=== PATIENT | male | born 1960 | race Caucasian/White ===

== ENCOUNTER 2018-07-08 16:49 | Inpatient (IN) ==
[2018-07-08] MEDS ORDERED: SODIUM CHLORIDE 0.9% 1000ML 1,000 ML IV ONE ×2 (17:28)
[2018-07-08 18:24] LABS: Basophils # (auto) 0.03 K/uL (0-0.2); Basophils % (auto) 0.3 %; Eosinophils # (auto) 0.04 K/uL (0-0.5); Eosinophils % (auto) 0.4 %; Hematocrit (blood only) 48.9 % (42-52); Hemoglobin 17.2 g/dL (14.0-18.0); Immature Granulocytes # (auto) 0.03 K/uL (0.00-0.02); Immature Granulocytes % (auto) 0.3 %; Lymphocytes # (auto) 1.03 K/uL (1.2-3.4); Lymphocytes % (auto) 9.5 %; Mean Corpuscular Hgb Conc 35.2 g/dL (32-36); Mean Corpuscular Volume 88.7 fL (80-100); Mean Platelet Volume 12.3 fL (7.4-10.4); Monocytes # (auto) 0.94 K/uL (0.11-0.59); Monocytes % (auto) 8.6 %; Neutrophils % (auto) 80.9 %; Platelet Count 197 K/uL (130-400); RDW Standard Deviation 42.2 fL (36.4-46.3); Red Blood Count 5.51 M/uL (4.7-6.1); White Blood Count 10.87 K/uL (4.8-10.8)
[2018-07-08 18:32] LABS: Alanine Aminotransferase 55 U/L (12-78); Albumin Level 3.5 gm/dl (3.4-5.0); Aspartate Aminotransferase 28 U/L (15-37); BUN Creatinine Ratio 21.4 (10-20); Blood Urea Nitrogen 34 mg/dl (7-18); Calcium 9.2 mg/dl (8.5-10.1); Carbon Dioxide 29 mmol/L (21-32); Chloride 114 mmol/L (98-107); Creatinine Clr Calc Pharmacy 48.4 ml/min; Est GFR (African American) 54.3; Est GFR (Non-African American) 46.8; Glucose 92 mg/dl (70-99); Magnesium 2.4 mg/dl (1.8-2.4); Potassium 3.6 mmol/L (3.5-5.1); Sodium 149 mmol/L (136-145)
[2018-07-08 18:43] LABS: Albumin Globulin Ratio 0.9 (0.9-2); Alkaline Phosphatase 66 U/L (45-117); Bilirubin,Total 1.4 mg/dl (0.2-1); Globulin 3.8 gm/dl (2.5-4.0); NT Pro B Type Natriuretic Pept 45 pg/ml (0-900); Total Protein 7.3 gm/dl (6.4-8.2); Troponin I < 0.015 ng/ml (0-0.045)
--- NOTE | 2018-07-08 18:47 | CT Scan Report ---
CT head/brain wo con CLINICAL HISTORY: 57 years-old Male with syncope, chi, ams. Acute syncope with altered mental status and acute fall. TECHNIQUE: Multiple axial CT images of the head were obtained without contrast. A dose lowering tech nique was utilized adhering to the principles of ALARA. COMPARISON: CT cervical spine of same day. FINDINGS: No acute intracranial hemorrhage, midline shift, intracranial mass, hydrocephalus, territorial ischem ia or abnormal extra-axial collection. The calvarium is intact. The paranasal sinuses, mastoid air cells, and middle ear cavities are clear . IMPRESSION: No acute intracranial abnormality or calvarial fracture. The above report was generated using voice recognition software. It may contain grammatical, syntax o r spelling errors. Electronically signed by: Jake Grace M.D. 07/08/2018 6:45 PM
--- NOTE | 2018-07-08 18:50 | CT Scan Report ---
CT cervical spine wo con CT DOSE: 1007.02 mGy.cm CLINICAL HISTORY: 57 years-old Male with syncope, ams, head injury. Acute neck injury status post fa ll COMPARISON: CT head of same day TECHNIQUE: Multiple axial CT images of the cervical spine were obtained without contrast. A dose low ering technique was utilized adhering to the principles of ALARA. FINDINGS: Mild disc space narrowing seen at several levels. Mild multilevel spondylitic spurring with mild to m oderate facet arthrosis. No acute fracture or subluxation identified. Dilation of the central canal a nd neuroforamina is better assessed by MRI. Severe right-sided facet arthropathy at C3-C4. Trace righ t mastoid effusion. Left mastoid air cells are clear. Middle ear cavities are also clear. No preverte bral soft tissue swelling. Lung apices appear clear. IMPRESSION: No acute cervical spine fracture or subluxation. The above report was generated using voice recognition software. It may contain grammatical, syntax o r spelling errors. Electronically signed by: Jake Grace M.D. 07/08/2018 6:49 PM
--- NOTE | 2018-07-08 19:22 | XRay Report ---
XR abdomen 2V w PA chest HISTORY: 57 years-old Male nausea, syncope acute nausea with syncope COMPARISON: None available TECHNIQUE: PA view the chest with erect and supine views of the abdomen FINDINGS: Cardiomediastinal and hilar silhouettes are within normal limits. No pneumothorax, pleural effusion o r overt pulmonary edema. Subsegmental left basilar opacities are noted. Degenerative changes of the s houlders and spine. Prior cholecystectomy. Bowel gas pattern appears nonobstructive. No definite urolith. Lumbar levoscol iosis. Degenerative changes of the hips, pelvis and spine. Remote fracture of the left femur with HUGO F changes. Pelvic basin calcifications suggest focal bullous. IMPRESSION: 1. Subsegmental left basilar opacities suggest probable atelectasis. 2. Nonobstructive bowel gas pattern. The above report was generated using voice recognition software. It may contain grammatical, syntax o r spelling errors. Electronically signed by: Jake Grace M.D. 07/08/2018 7:21 PM
[2018-07-08 20:52] LABS: Appearance Urine Turbid (Clear); Bacteria Urine Automated Negative (Negative); Blood Urine Negative (Negative); Color Urine Orange; Epithelial Cell Urine Auto >30 /lpf (0-5); Glucose Urine UA Negative (Negative); Ketones Urine 1+ (Negative); Leukocyte Esterase Urine Trace (Negative); Nitrite Urine Positive (Negative); Protein Urine Trace (Negative); Specific Gravity Urine 1.022 (1.000-1.030); Urobilinogen Urine Positive (Negative)
[2018-07-08] MEDS ORDERED: IOVERSOL 100ml IV PRN (21:00)
[2018-07-08 21:02] LABS: Bilirubin Urine Negative (Negative); Ictotest Urine Negative (Negative)
[2018-07-08 21:05] LABS: Cast Urine Automated >30 /lpf (0-5)
[2018-07-08 21:06] LABS: Renal Epithelial Cells Urine 0-5 /lpf (0-5)
[2018-07-08 21:10] LABS: iSTAT Hemoglobin 13.3 g/dl (14.0-18.0); iSTAT Ionized Calcium 1.06 mmol/l (1.12-1.32); iSTAT Potassium 3.7 mEq/L (3.3-5.0)
[2018-07-08 21:13] LABS: Amphetamines+Metham, Urine Neg (Neg); Barbiturates, Urine Neg (Neg); Benzodiazepine, Urine Neg (Neg); Cocaine, Urine Neg (Neg); MDMA (Ecstacy), Urine Neg (Neg); Methadone, Urine Neg (Neg); Opiate, Urine Neg (Neg); Phencyclidine, Urine Neg (Neg)
--- NOTE | 2018-07-08 21:51 | CT Scan Report ---
ABDOMEN AND PELVIS CT WITH IV CONTRAST CT DOSE: 496.73 mGy.cm HISTORY: Acute nausea and vomiting with recent cholecystectomy n/v, s/p karen TECHNIQUE: Multiaxial CT images of the abdomen and pelvis were performed following the use of intrave nous contrast. A dose lowering technique was utilized adhering to the principles of ALARA. COMPARISON STUDY: Acute abdominal series radiographs of same day. FINDINGS: Bibasilar linear consolidative and patchy groundglass densities are noted suggestive of probable atel ectasis. There is no pneumatosis or pneumoperitoneum identified. Imaged inferior cardiac chambers are upper limits of normal in size. Prior cholecystectomy. The postoperative fluid collections. No bilia ry ductal dilation. The liver is unremarkable. 5 mm hypodense lesion of the inferior right hepatic lo be suggests probable cyst. Spleen, pancreas and adrenal glands are unremarkable. Mild nonspecific verónica ateral perinephric stranding. The ureters are unremarkable. Mild wall thickening of the urinary bladd er with partial distention. Prostate is unremarkable. Tiny fat filled left inguinal hernia. No aortic aneurysm or adenopathy. There is no small bowel obstruction. Air-fluid levels are noted within multiple nondilated loops of s mall bowel about the abdomen and pelvis. No significant bowel wall thickening. Appendix appears kristina l. No ascites or mesenteric inflammation. Soft tissues are within normal limits. Partially imaged kulwinder dware about the proximal left femur. Degenerative changes of the pelvis and spine. Mild lumbar levosc oliosis. Bones appear intact. IMPRESSION: 1. No bowel obstruction or focal bowel wall thickening. Normal appendix. 2. Multiple scattered small bowel air-fluid levels are noted throughout the abdomen and pelvis which may be physiologic, however considering history of nausea and vomiting an infectious or inflammatory enteritis may also be considered. 3. Prior cholecystectomy. 4. Bibasilar opacities suggest atelectasis with pneumonia considered less likely. 5. Mild wall thickening of the urinary bladder. Correlate with urinalysis to exclude cystitis. 6. Additional findings as above. Electronically signed by: Jake Grace M.D. 07/08/2018 9:50 PM
[2018-07-08] MEDS ORDERED: cefTRIAXone SODIUM 1,000 MG/50 ML BAG IV STA (22:16)
--- NOTE | 2018-07-08 23:26 | History & Physical Report ---
Date of Service July 08, 2018 Assessment & Plan (1) Syncope: 57yoM with hx of HTN and bipolar disorder presented from the [facility] for concern of lightheadedness and falling to the floor. Syncopal episode: likely in the setting of significant dehydration due to occasional diarrhea and decreased PO intake vs. hypotension vs. UTI vs. possible arrhythmia -CT head and C-spine - negative -EKG 75 NSR QTc 511 -Trop and BNP wnl -electrolytes wnl except for hypernatremia/hyperchloremia -UA dirty and concentrated but possibly concerning for UTI -Abdominal CT concerning for possible enteritis -Utox negative and etoh < 3 -Received 2L IVF NS bolus and on 150cc NS now -Monitor on telemetry UTI -WBC 10.87 -Hx of dysuria and suprapubic tenderness on exam -UA dirty and concentrated but possibly concerning for UTI -UCx pending -Started on Rocephin MY likely in the setting of signioficant dehydration -BUN/Cr 34/1.59 -Received 2L NS bolus and on 150cc NS/hr -Continue to monitor BMP Hypernatremia -Na 149 likely in the setting of hypovolemia -Continue NS at 150cc/hr -Continue to monitor BMP Diarrhea with occasional nausea since may: viral vs. bacterial enteritis -WBC 10.87 -CT abdomen: multiple scattered small bowel air fluid levels concerning for infectious/inflammatory process vs. enteritis -C.diff and stool cultures ordered -On Rocephin for UTI -Continue to monitor Bipolar Disorder -Pt was admitted at the [facility] prior to arrival -Continue home citalopram, lamotrigine, zyprexa and ativan -Pt exhibiting passive suicidal thoughts but denies active SI/HI -Mental health evaluation requested HTN -Pt currently normotensive -Hold Lisinopril in the setting of elevated Cr GERD -Continue home omeprazole DVT prop: low risk, SCDs Code: Full Dispo: med/surg telemetry (2) UTI (urinary tract infection): (3) Dehydration: (4) HTN (hypertension): (5) Bipolar disorder: History of Present Illness Primary Care Provider: NO PCP 57yoM with hx of HTN and bipolar disorder presented from the [facility] for concern of lightheadedness and falling to the floor. Per the [facility] reports, pt had not been eating/drinking, fatigued and was hypotensive prior to arrival. When examined pt appears to be a poor historian and exhibiting active psychiatric symptoms. Reports falling around 11:00am. A/w mild dizziness prior to fall, some occasional sob, nausea, on and off diarrhea since having gall bladder surgery in may. Denies any headache, f/c, cp, abdominal pain. He is not sure if he hit his head and does not think he lost consiousness but reports "they said I did hit my head". He also reports struggling to get along with everyone and just wanting to get it done with. Denies any SI/HI and has no plans of harming himself when further clarified given passive suicidal thoughts. Allergies Allergy/AdvReac Type Severity Reaction Status Date / Time quetiapine [From Seroquel] AdvReac Irritable Unverified 07/08/18 17:43 venlafaxine [From Effexor] AdvReac Unknown Unverified 07/08/18 17:43 Home Medications Home Medications Medication Instructions Recorded Confirmed Type citalopram 30 mg PO DAILY 07/08/18 07/08/18 History lamotrigine 50 mg PO BID 07/08/18 07/08/18 History lisinopril 10 mg PO DAILY 07/08/18 07/08/18 History lorazepam [Ativan] 1 mg PO TID 07/08/18 07/08/18 History olanzapine [Zyprexa Zydis] 10 mg PO DAILY 07/08/18 07/08/18 History omeprazole 20 mg PO DAILY 07/08/18 07/08/18 History Past Med/Surg History Surgical History History of cholecystectomy (Chronic) Social History Preferred Language: Belizean Communication Ability: Effective Regional Clinical Director Required: No Beliefs That Will Affect Care: None Current Living Situation: Alone Current Living Situation Comment: [facility] Other Information That Helps Us Care for You: No Safety Concerns: Afraid for Self Smoking Status: Never smoker Hx Alcohol Use: No Hx Substance Use: No Review of Systems As per HPI Physical Exam Vital Signs (Past 24 Hours): Last Vital Signs Temp 36.8 C 07/08/18 17:08 Pulse 60 07/08/18 23:00 Resp 16 07/08/18 23:00 BP 127/78 07/08/18 23:00 Pulse Ox 96 07/08/18 23:00 Physical Exam: General: In NAD, resting in bed HEENT: very dry mucous membranes CV: RRR, no m/r/g Pulm: CTAB, equal breath sounds bilaterally, on RA GI: +BS, non-distended, TTP in all quadrants (more so over lower abdominal quadrants RLQ, suprapubic, LLQ regions) extremities: no calf tenderness, no LE edema Code Status & VTE Plan Code Status Full VTE Prophylaxis Plan VTE Prophylaxis will be ordered: Yes Supervising Physician Co-Signing Physician Notes Attending addendum: I have physically seen this patient, have supervised the medical residents activities, and agree with the H&P unless as otherwise noted. Assessment and Plan: Syncope-- Likely associated with metabolic/psychiatric issues. Acute kidney injury/hypernatremia/dehydration/UTI-- Follow urine culture and sensitivity. Ceftriaxone 1 g IV daily. Follow serial labs: CBC with differential, CMP and magnesium levels. Continue NSS 150 mils per hour after 2 L bolus performed in ED. Diarrhea/nausea-- Follow stool studies for C. difficile, urine culture and sensitivity. No suggestion of E. coli. Bipolar disorder/suicidal ideation-- Continue usual medications of citalopram, lamotrigine, Zyprexa and Ativan. Consult psychiatry. Question contribution to syncopal/near syncopal symptoms. Remainder of orders notations as noted. Resident Activity Tracking Resident Involvement: Resident Care Provided Care Provided: Adult Hospital Medicine (1) UTI (urinary tract infection) Hematuria presence: without hematuria Urinary tract infection type: site unspecified Qualified Code(s): N39.0 - Urinary tract infection, site not specified (2) Syncope Syncope type: unspecified Qualified Code(s): R55 - Syncope and collapse
[2018-07-09] MEDS ORDERED: ALUMINUM/MAGNESIUM SUSP 30 ML UDC PO PRN (01:54)
[2018-07-09] MEDS ORDERED: ACETAMINOPHEN 325 MG TAB PO PRN (01:54)
[2018-07-09] MEDS: SODIUM CHLORIDE 0.9% 1000ML 1,000 ML IV SCH ×2 (02:05→08:07)
[2018-07-09] MEDS: lamoTRIgine 25 MG TAB PO SCH ×3 (02:57→22:29)
--- NOTE | 2018-07-09 07:49 | Hospitalist Progress Note ---
Date of Service July 09, 2018 Assessment & Plan (1) Syncope: 57yoM with hx of HTN and bipolar disorder presented from the [facility] for concern of lightheadedness and falling to the floor. Syncopal episode: likely in the setting of significant dehydration due to occasional diarrhea and decreased PO intake vs. hypotension vs. UTI vs. possible arrhythmia -CT head and C-spine - negative -EKG 75 NSR QTc 511 -Trop and BNP wnl -electrolytes wnl except for hypernatremia/hyperchloremia -UA dirty and concentrated but possibly concerning for UTI -Abdominal CT concerning for possible enteritis -Utox negative and etoh < 3 -Received 2L IVF NS bolus and on 150cc NS now -Monitor on telemetry Lamictal level pending UTI poa -UCx pending -Started on Rocephin MY -Received 2L NS bolus and on 150cc NS/hr -Continue to monitor BMP we will change fluids to half-normal saline at 100 and hour Hypernatremia Diarrhea with occasional nausea since may: viral vs. bacterial enteritis -CT abdomen: multiple scattered small bowel air fluid levels concerning for infectious/inflammatory process vs. enteritis -C.diff and stool cultures ordered -On Rocephin for UTI Bipolar Disorder -Pt was admitted at the [facility] prior to arrival -Continue home citalopram, lamotrigine, zyprexa and ativan will reduce doses of Zyprexa and Ativan which was scheduled due to his lethargy -Pt exhibiting passive suicidal thoughts but denies active SI/HI upon requesting 07/09 -Mental health evaluation requested HTN -Holding Lisinopril in the setting of elevated Cr GERD omeprazole DVT prop: low risk, SCDs Code: Full Dispo: med/surg telemetry (2) UTI (urinary tract infection): (3) Dehydration: (4) HTN (hypertension): (5) Bipolar disorder: Subjective Patient presented with syncope was found to be suspected to have a urinary tract infection present on admission and evaded sodium although modest. Patient is on multiple psychiatric medications and appears oversedated during our evaluation on 07/09 is able to ambulate with contact-guard Review of Systems ROS: well nourished well developed. He is lethargic No double vision blurry vision He has mumbling of speech but no problems with eating according to nursing staff No palpitations, chest pain or pressure No Wheezing or breathing issues No abdominal pain nausea vomiting diarrhea changes in appetite or weight No burning urine urine frequency or changes in color No focal joint pain or muscle pain No skin rashes or oral lesions No unusual bruising or bleeding No focused back pain or numbness or loss of strength Physical Exam Vital Signs (Past 24 Hours): Last Vital Signs Temp 36.3 C L 07/09/18 04:00 Pulse 60 07/09/18 04:00 Resp 16 07/09/18 04:00 BP 91/55 L 07/09/18 04:00 Pulse Ox 95 07/09/18 04:00 The patient appeared well nourished and normally developed. Vital signs as documented. Head exam is unremarkable. normocephalic, atraumatic no signs of injury from his fall Neck is without jugular venous distension, thyromegaly, or lymphademopathy Lungs are clear to auscultation and percussion. Cardiac exam reveals Rhythm is regular. First and second heart sounds normal. Abdominal exam reveals normal bowel sounds, no masses, no organomegaly Extremities are nonedematous and both pedal pulses are present Neurologic exam is A&Ox3, patient is lethargic no focal deficits able to ambulate Psychologically seems medicated Skin is warm Dry without bruises or lesions (1) UTI (urinary tract infection) Hematuria presence: without hematuria Urinary tract infection type: site unspecified Qualified Code(s): N39.0 - Urinary tract infection, site not specified (2) Syncope Syncope type: unspecified Qualified Code(s): R55 - Syncope and collapse
[2018-07-09] MEDS: CITALOPRAM 20 MG TAB PO SCH (08:05)
[2018-07-09] MEDS: PANTOprazole 40 MG TAB PO SCH (08:06)
[2018-07-09] MEDS: LORazepam 1 MG TAB PO SCH ×2 (08:07→16:45)
[2018-07-09] MEDS ORDERED: OLANZAPINE ZYDIS 10 MG ORALLY DIS. TAB PO SCH (09:00)
[2018-07-09 09:19] LABS: Basophils # (auto) 0.06 K/uL (0-0.2); Basophils % (auto) 0.8 %; Eosinophils # (auto) 0.13 K/uL (0-0.5); Eosinophils % (auto) 1.7 %; Hematocrit (blood only) 42.4 % (42-52); Hemoglobin 14.7 g/dL (14.0-18.0); Immature Granulocytes # (auto) 0.01 K/uL (0.00-0.02); Immature Granulocytes % (auto) 0.1 %; Lymphocytes # (auto) 1.64 K/uL (1.2-3.4); Lymphocytes % (auto) 21.4 %; Mean Corpuscular Hgb Conc 34.7 g/dL (32-36); Mean Corpuscular Volume 88.7 fL (80-100); Mean Platelet Volume 12.1 fL (7.4-10.4); Monocytes # (auto) 0.67 K/uL (0.11-0.59); Monocytes % (auto) 8.8 %; Neutrophils # (auto) 5.14 K/uL (1.4-6.5); Neutrophils % (auto) 67.2 %; Platelet Count 156 K/uL (130-400); RDW Coefficient of Variation 13.1 % (11.5-14.5); RDW Standard Deviation 42.6 fL (36.4-46.3); Red Blood Count 4.78 M/uL (4.7-6.1); White Blood Count 7.65 K/uL (4.8-10.8)
[2018-07-09 10:00] LABS: Albumin Globulin Ratio 0.8 (0.9-2); Albumin Level 2.6 gm/dl (3.4-5.0); BUN Creatinine Ratio 24.1 (10-20); Bilirubin,Total 1.1 mg/dl (0.2-1); Calcium 8.2 mg/dl (8.5-10.1); Creatinine Clr Calc Pharmacy 90.5 ml/min; Est GFR (African American) 110.5; Est GFR (Non-African American) 95.4; Globulin 3.3 gm/dl (2.5-4.0); Potassium 3.5 mmol/L (3.5-5.1); Total Protein 5.9 gm/dl (6.4-8.2)
--- NOTE | 2018-07-09 12:49 | Psychiatric Consultation ---
Date of Consultation July 09, 2018 Impression / Recommendations Impression 57-year-old male admitted medically from the [facility] and treated for dehydration and UTI s/p syncopal episode. Pt is currently on an active 302 from the [facility], and is to return to that facility to complete psychiatric treatment after he is medically cleared. Pt denies suicidality, homicidality, and any active hallucinations, delusions, or other clear psychotic symptoms. He does appear somewhat sedated, but is able to converse with this provider, giving limited history. He is tangential at times, but comments are reality-based during our interview. No records received from the [facility] in regard to m edication adjustments made during his voluntary stay. Would recommend continuing his current medication regimen if tolerated until his return to their facility. At time of assessment, the patient does not present with any acute psychiatric concerns which would affect his ability to safely return to the [facility]. Appreciate the ability to participate in the care of this patient. Dr. Esteban Watts was directly involved in review and discussion of the patient's case and participated in medical decision making regarding treatment recommendations. CPT Code Initial Consultation: 55991 Psych History Identifying Data 57-year-old male admitted medically on 07/08/18 after suffering a fall while hospitalized at the [facility]. Pt was being treated involuntary and remains on an active 302 commitment. Psychiatric consultation was requested due to bipolar disorder, and concern for SI. Information is gathered from the patient is difficult to gather, but considered to be reliable. Chief Complaint "I'm hanging in there." History of Present Illness Wilfred Martines is a 57-year-old male admitted medically on 07/08/18 s/p fall while receiving treatment at [facility]. There was reported concern as the patient had not been eating or drinking during his treatment there. Pt was admitted involuntarily and remains on an active 302 commitment. Pt is seen on our consult service to assist in psychiatric management during his medical admission - and specifically to evaluate for bipolar disorder and concern for SI. Pt had reportedly presented with AMS, was found to have a UTI and has been treated for dehydration. Psychiatric medications were continued during his medical admission. Pt was assessed by our psychiatric liaison. Pt was seen by this provider on our consult service. He is somewhat cooperative, and mildly irritable as he had reported desire to take a nap just prior to this provider entering the room. Pt states he is "hanging in there." He voices that he is feeling better and that he wants to go home. We discussed that after he is feeling better physically, he will be returning to the [facility] to finish his inpatient psychiatric treatment. The patient was asked about the presence of A/V hallucinations, which he denies stating "not that I know of." He denies overt suicidality, rather stating - "life is tough sometimes, but I bet a bunch of people feel that way." Pt denies homicidal ideation. He is tangential at times, jumping from our conversation to "do I have bruises all over me?" When asked if he felt that he did, he states "well they keep sticking me with needles." Pt, did not voice an concerns consistent with delusions, paranoia, or active psychosis which would make transfer back to the [facility] considered unsafe. Past Psychiatric History Current Psychiatric Diagnosis: Bipolar disorder Previous Psych Admissions: Presented to the [facility] as a 201; converted to 302 with inability to care for self when he stopped eating and drinking. Past Medication Trials: 1. Seroquel 2. Effexor Allergies Allergy/AdvReac Type Severity Reaction Status Date / Time quetiapine [From Seroquel] AdvReac Irritable Unverified 07/08/18 17:43 venlafaxine [From Effexor] AdvReac Unknown Unverified 07/08/18 17:43 Home Medications Home Medications Medication Instructions Recorded Confirmed Type citalopram 30 mg PO DAILY 07/08/18 07/08/18 History lamotrigine 50 mg PO BID 07/08/18 07/08/18 History lisinopril 10 mg PO DAILY 07/08/18 07/08/18 History lorazepam [Ativan] 1 mg PO TID 07/08/18 07/08/18 History olanzapine [Zyprexa Zydis] 10 mg PO DAILY 07/08/18 07/08/18 History omeprazole 20 mg PO DAILY 07/08/18 07/08/18 History Personal History Beliefs That Will Affect Care: None Patient History Surgical History History of cholecystectomy (Chronic) Social History Preferred Language: Slovak Communication Ability: Effective Supervisor Refractory Products Required: No Beliefs That Will Affect Care: None Current Living Situation: Alone Current Living Situation Comment: [facility] Other Information That Helps Us Care for You: No Safety Concerns: Afraid for Self Smoking Status: Never smoker Hx Alcohol Use: No Hx Substance Use: No Physical Exam Psychiatric Orientation: alert (able to converse, but sedated) and oriented x 3 Apperance: appropriately dressed (in paper scrubs), + disheveled (long, unruly hair and leonard) and appeared stated age Eye Contact: + poor eye contact (had eyes shut for most of conversation) Motor Behavior: no abnormal motor movements (observed while laying in bed) Soft speech, somewhat difficulty to understand as limited annunciation Affect: + blunted affect "I get down sometimes" and "fine" Thought Process: goal directed thought process, clear/coherent thought process and + tangential thought process No obvious delusions, paranoia, cognitive distortions, or other clearly demonstrated active psychosis Suicidal Thoughts: denies suicidal thoughts Homicidal Thoughts: denies homicidal thoughts Hallucinations: no auditory hallucinations and no visual hallucinations Cognition: attention grossly intact (intact, but fatigued) and language grossly intact Estimated Intelligence: average estimated intelligence Insight: + limited insight Judgement: + limited judgement Vital Signs (Past 24 Hours) Last Vital Signs Temp 36.4 C L 07/09/18 11:01 Pulse 64 07/09/18 11:01 Resp 18 07/09/18 11:01 BP 98/60 L 07/09/18 11:01 Pulse Ox 95 07/09/18 11:01 Review of Systems Constitutional: reports fatigue, general discomfort from being in hospital Cardiovascular: denied Respiratory: denied Gastrointestinal: denied Neurological: denied Psychiatric: denies symptoms other than stated above Total of at least 10 systems reviewed, pertinent positives as above and in HPI. Results & Data Medications Administered Citalopram Hydrobromide (Celexa) 30 mg PO DAILY [facility] Stop: 08/08/18 08:59 Last Admin: 07/09/18 08:05 Dose: 30 mg Documented by: [id number] Sodium Chloride (Nss 1000ml) 1,000 mls @ 150 mls/hr IV .[id number] [facility] Stop: 08/08/18 01:53 Last Admin: 07/09/18 08:07 Dose: 150 mls/hr Documented by: [id number] Infusion: 07/09/18 08:07 Dose: 150 mls/hr Documented by: [id number] Admin: 07/09/18 02:05 Dose: 150 mls/hr Documented by: [id number] Ioversol (Optiray 320 100ml) 90 ml IV ONCE PRN PRN Reason: Interaction Checking Stop: 07/12/18 20:59 Last Admin: 07/08/18 21:00 Dose: 90 ml Documented by: [id number] Lamotrigine (Lamictal) 50 mg PO BID [facility] Stop: 08/08/18 01:53 Last Admin: 07/09/18 08:05 Dose: 50 mg Documented by: [id number] Admin: 07/09/18 02:57 Dose: 50 mg Documented by: [id number] Lorazepam (Ativan) 1 mg PO TID [facility] Stop: 08/08/18 08:59 Last Admin: 07/09/18 08:07 Dose: 1 mg Documented by: [id number] Olanzapine (Zyprexa Zydis Od) 10 mg PO DAILY [facility] Stop: 08/08/18 08:59 Last Admin: 07/09/18 08:06 Dose: 10 mg Documented by: [id number] Pantoprazole Sodium (Protonix) 40 mg PO DAILY [facility] Stop: 08/08/18 08:59 Last Admin: 07/09/18 08:06 Dose: 40 mg Documented by: [id number]
[2018-07-09 13:35] LABS: BUN Creatinine Ratio 24.1 (10-20); Calcium 8.9 mg/dl (8.5-10.1); Creatinine Clr Calc Pharmacy 90.5 ml/min; Est GFR (African American) 110.5; Est GFR (Non-African American) 95.4; Potassium 3.5 mmol/L (3.5-5.1)
[2018-07-09] MEDS: SODIUM CHLORIDE 0.45 % 1,000 ML IV SCH ×3 (16:20→17:53)
[2018-07-09] MEDS ORDERED: cefTRIAXone SODIUM 1,000 MG in DEXTROSE 5% 50 ML IV SCH (22:00)
[2018-07-09] MEDS: LORazepam 0.5 MG TAB PO SCH (22:29)
--- NOTE | 2018-07-10 01:40 | Emergency Department Note ---
Entered by Erica Mosquera acting as a scribe for History of Present Illness General Chief complaint: Lethargic Time Seen by Provider: 07/08/18 17:11 Source: patient and other (nurse) Mode of arrival: EMS Limitations: no limitations History of Present Illness Provider complaint: AMS Onset (ago): day(s) 1 Location: head Pain Consistency: + other (persistent) Quality: + other (AMS) Associated symptoms: + denies other symptoms (melena, hematochezia), + shortness of breath and + other (dark urine, diarrhea); no chest pain, no headaches and no nausea/vomiting The patient is a 57 year old male who presents to the Emergency Room for an evaluation of altered mental status. The patient's nurse at bedside reports that the patient resides at [place] and that a few days ago he stood up from his bed and shortly after lost consciousness. She states that he then fell to the ground and hit the back of his head. Per nurse, the patient's blood pressure was obtained and was low following this episode. She also reports that the patient has been lethargic and not wanting to eat or drink. She also states that he has been having slurred speech. She notes that the patient has not been wanting to take his psych medication either. She states he was unconscious for what seemed like a long time before coming to again, was pale and diaphoretic. States they could not obtain a blood pressure on him there and had a difficult time feeling his pulse. Initial blood pressures by EMS were low. The patient denies any chest pain, nausea, or headaches but states he has been short of breath at [facility]. He also reports that he has had loose stool but denies any melena or hematochezia. He notes he has also had dark urine. No pain with urination, no gross blood. The patient also states that he had a cholecystectomy 6 weeks ago. States he felt like he was healing well, but became suspicious of possible complication given his loss of appetite. Patient denies any head or neck pain since the fall. Patient denies any history of syncope. Home Medications Home Medications Medication Instructions Recorded Confirmed Type citalopram 30 mg PO DAILY 07/08/18 07/08/18 History lamotrigine 50 mg PO BID 07/08/18 07/08/18 History lisinopril 10 mg PO DAILY 07/08/18 07/08/18 History lorazepam [Ativan] 1 mg PO TID 07/08/18 07/08/18 History olanzapine [Zyprexa Zydis] 10 mg PO DAILY 07/08/18 07/08/18 History omeprazole 20 mg PO DAILY 07/08/18 07/08/18 History Allergies Allergy/AdvReac Type Severity Reaction Status Date / Time quetiapine [From Seroquel] AdvReac Irritable Unverified 07/08/18 17:43 venlafaxine [From Effexor] AdvReac Unknown Unverified 07/08/18 17:43 Past Med/Surg History Surgical History History of cholecystectomy (Chronic) Social History Preferred Language: Swedish Communication Ability: Effective It Support Consultant Required: No Beliefs That Will Affect Care: None Current Living Situation: Alone Current Living Situation Comment: [facility] Other Information That Helps Us Care for You: No Safety Concerns: Afraid for Self Smoking Status: Never smoker Hx Alcohol Use: No Hx Substance Use: No Review of Systems See HPI for pertinent positives & negatives. and A total of 10 systems reviewed and were otherwise negative Physical Exam Vital Signs Vital Signs - 24 hr 07/09/18 01:41 07/09/18 01:54 07/09/18 02:14 Temperature 36.5 C 36.5 C Temperature Source Oral Oral Pulse Rate 66 Pulse Rate [Apical] 68 58 L Pulse Rate [Left Finger] Pulse Rhythm [Apical] Regular Regular Pulse Strength [Apical] Normal Normal Respiratory Rate 16 16 Respiratory Effort / Characteristics Non-Labored Non-Labored Spontaneous Respiratory Depth Normal Normal Respiratory Pattern Regular Blood Pressure [Left Arm] Blood Pressure [Right Arm] 100/64 100/64 Blood Pressure Mean [Left Arm] Blood Pressure Mean [Right Arm] 76 76 Blood Pressure Position [Left Arm] Blood Pressure Position [Right Arm] Lying Sitting Pulse Oximetry 96 96 Pulse Oximetry [Right Index Finger] 96 Oxygen Delivery Method Room Air Room Air Oxygen Delivery Method [Right Index Finger] Room Air 07/09/18 04:00 07/09/18 07:56 07/09/18 11:01 Temperature 36.3 C L 36.7 C 36.4 C L Temperature Source Oral Oral Oral Pulse Rate Pulse Rate [Apical] 60 Pulse Rate [Left Finger] 62 64 Pulse Rhythm [Apical] Pulse Strength [Apical] Respiratory Rate 16 14 18 Respiratory Effort / Characteristics Respiratory Depth Respiratory Pattern Blood Pressure [Left Arm] Blood Pressure [Right Arm] 91/55 L 115/62 98/60 L Blood Pressure Mean [Left Arm] Blood Pressure Mean [Right Arm] 67 79 72 Blood Pressure Position [Left Arm] Blood Pressure Position [Right Arm] Lying Lying Lying Pulse Oximetry 95 96 95 Pulse Oximetry [Right Index Finger] Oxygen Delivery Method Room Air Room Air Room Air Oxygen Delivery Method [Right Index Finger] 07/09/18 15:50 07/09/18 19:54 07/09/18 23:45 Temperature 36.5 C 36.6 C 36.3 C L Temperature Source Oral Oral Oral Pulse Rate Pulse Rate [Apical] Pulse Rate [Left Finger] 72 58 L 45 L Pulse Rhythm [Apical] Pulse Strength [Apical] Respiratory Rate 16 16 18 Respiratory Effort / Characteristics Respiratory Depth Normal Respiratory Pattern Blood Pressure [Left Arm] 110/68 Blood Pressure [Right Arm] 106/63 99/62 L Blood Pressure Mean [Left Arm] 82 Blood Pressure Mean [Right Arm] 77 74 Blood Pressure Position [Left Arm] Lying Blood Pressure Position [Right Arm] Lying Lying Pulse Oximetry 95 94 94 Pulse Oximetry [Right Index Finger] Oxygen Delivery Method Room Air Room Air Room Air Oxygen Delivery Method [Right Index Finger] GENERAL: alert, ill appearing, well nourished, no distress, non-toxic EYE EXAM: normal conjunctiva, PERRL and EOM's grossly intact OROPHARYNX: no exudate, no erythema, lips, buccal mucosa, and tongue normal and mucous membranes are markedly dry NECK: supple, no nuchal rigidity, no adenopathy, non-tender LUNGS: Clear to auscultation. Normal chest wall mechanics, decreased BS, no w/r/r HEART: no murmurs, S1 normal and S2 normal ABDOMEN: abdomen soft, non-tender, normo-active bowel sounds, no masses, no rebound or guarding. Healing incisions from recent laparoscopic surgery BACK: Back is symmetrical on inspection and there is no deformity, no midline tenderness, no CVA tenderness. SKIN: no rashes and no bruising UPPER EXTREMITIES: upper extremities are grossly normal. FROM, nml pulses b/l. LOWER EXTREMITIES: No pitting edema. FROM, nml pulses b/l. NEURO EXAM: Normal sensorium, cranial nerves II-XII grossly intact, thick speech, slow to answer but is oriented, no gross weakness of arms, no gross weakness of legs. Course 1718: The patient was evaluated in room C1B, and a complete history and physical examination were performed. 4: Upon reevaluation, the patient is feeling slightly better. 2222: I updated the patient and he is agreeable with the treatment plan. 2238: I reviewed the patient's case with Dr. Romano - [facility] Hospitalist. He will evaluate the patient for further management. Administered Medications Citalopram Hydrobromide (Celexa) 30 mg PO DAILY KANIKA Stop: 08/08/18 08:59 Last Admin: 07/09/18 08:05 Dose: 30 mg Documented by: [id number] Ceftriaxone Sodium 1,000 mg/ (Dextrose) 60 mls @ 100 mls/hr IV Q24H KANIKA Stop: 07/17/18 22:35 Last Admin: 07/09/18 22:28 Dose: 100 mls/hr Documented by: [id number] Sodium Chloride (1/2 Nss) 1,000 mls @ 100 mls/hr IV .Q10H KANIKA Stop: 07/10/18 07:44 Last Admin: 07/09/18 17:53 Dose: 100 mls/hr Documented by: [id number] Ioversol (Optiray 320 100ml) 90 ml IV ONCE PRN PRN Reason: Interaction Checking Stop: 07/12/18 20:59 Last Admin: 07/08/18 21:00 Dose: 90 ml Documented by: [id number] Lamotrigine (Lamictal) 50 mg PO BID KANIKA Stop: 08/08/18 01:53 Last Admin: 07/09/18 22:29 Dose: 50 mg Documented by: [id number] Admin: 07/09/18 08:05 Dose: 50 mg Documented by: [id number] Admin: 07/09/18 02:57 Dose: 50 mg Documented by: [id number] Lorazepam (Ativan) 0.5 mg PO BID KANIKA Stop: 08/08/18 20:59 Last Admin: 07/09/18 22:29 Dose: 0.5 mg Documented by: [id number] Pantoprazole Sodium (Protonix) 40 mg PO DAILY KANIKA Stop: 08/08/18 08:59 Last Admin: 07/09/18 08:06 Dose: 40 mg Documented by: [id number] Discontinued Medications Sodium Chloride (Nss 1000ml) 1,000 mls @ 999 mls/hr IV .Q1H1M ONE Stop: 07/08/18 18:28 Last Infusion: 07/08/18 18:48 Dose: 0 mls/hr Documented by: [id number] Admin: 07/08/18 17:42 Dose: 999 mls/hr Documented by: [id number] Sodium Chloride (Nss 1000ml) 1,000 mls @ 999 mls/hr IV .Q1H1M ONE Stop: 07/08/18 18:28 Last Infusion: 07/08/18 18:48 Dose: 0 mls/hr Documented by: [id number] Admin: 07/08/18 17:42 Dose: 999 mls/hr Documented by: [id number] Ceftriaxone Sodium (Rocephin) 1,000 mg in 50 mls @ 100 mls/hr IV NOW STA Stop: 07/08/18 22:45 Last Infusion: 07/08/18 22:56 Dose: 0 mls/hr Documented by: [id number] Admin: 07/08/18 22:23 Dose: 100 mls/hr Documented by: [id number] Sodium Chloride (Nss 1000ml) 1,000 mls @ 150 mls/hr IV .Q6H40M [facility] Stop: 08/08/18 01:53 Last Admin: 07/09/18 08:07 Dose: 150 mls/hr Documented by: [id number] Infusion: 07/09/18 08:07 Dose: 150 mls/hr Documented by: [id number] Admin: 07/09/18 02:05 Dose: 150 mls/hr Documented by: [id number] Sodium Chloride (1/2 Nss) 1,000 mls @ 1,000 mls/hr IV .Q1H KANIKA Stop: 07/09/18 16:29 Last Infusion: 07/09/18 16:46 Dose: 0 mls/hr Documented by: [id number] Infusion: 07/09/18 16:46 Dose: 0 mls/hr Documented by: [id number] Infusion: 07/09/18 16:45 Dose: 0 mls/hr Documented by: [id number] Infusion: 07/09/18 16:45 Dose: 0 mls/hr Documented by: [id number] Admin: 07/09/18 16:21 Dose: 1,000 mls/hr Documented by: [id number] Infusion: 07/09/18 16:21 Dose: 1,000 mls/hr Documented by: [id number] Admin: 07/09/18 16:20 Dose: 1,000 mls/hr Documented by: [id number] Lorazepam (Ativan) 1 mg PO TID KANIKA Stop: 08/08/18 08:59 Last Admin: 07/09/18 16:45 Dose: Not Given Documented by: [id number] Admin: 07/09/18 08:07 Dose: 1 mg Documented by: [id number] Olanzapine (Zyprexa Zydis Od) 10 mg PO DAILY KANIKA Stop: 08/08/18 08:59 Last Admin: 07/09/18 08:06 Dose: 10 mg Documented by: [id number] Medical Decision Making Differential Diagnosis Differential diagnosis includes: vasovagal event, infection, hypoglycemia, electrolyte abnormalities, cardiac sources, intracerebral event, toxicologic, neurologic, as well as others were entertained. Home Medications Current Medication List: was personally reviewed by me Laboratory Data Attestation: I reviewed the patient's lab results. Result diagrams: 07/09/18 08:44 07/09/18 12:54 Lab Results 07/08/18 07/08/18 07/08/18 Range/Units 17:59 17:59 17:59 WBC 10.87 H (4.8-10.8) K/uL RBC 5.51 (4.7-6.1) M/uL Hgb 17.2 (14.0-18.0) g/dL POC Hgb (14.0-18.0) g/dl Hct 48.9 (42-52) % POC Hct (42-52) % MCV 88.7 (80-100) fL MCH 31.2 (25-34) pg MCHC 35.2 (32-36) g/dL RDW Std Deviation 42.2 (36.4-46.3) fL RDW Coeff of Richard 13.0 (11.5-14.5) % Plt Count 197 (130-400) K/uL MPV 12.3 H (7.4-10.4) fL Immature Gran % (Auto) 0.3 % Neut % (Auto) 80.9 % Lymph % (Auto) 9.5 % [place] % (Auto) 8.6 % Eos % (Auto) 0.4 % Baso % (Auto) 0.3 % Immature Gran # (Auto) 0.03 H (0.00-0.02) K/uL Neut # (Auto) 8.80 H (1.4-6.5) K/uL Lymph # (Auto) 1.03 L (1.2-3.4) K/uL [place] # (Auto) 0.94 H (0.11-0.59) K/uL Eos # (Auto) 0.04 (0-0.5) K/uL Baso # (Auto) 0.03 (0-0.2) K/uL POC Sodium (135-144) mEq/L Sodium 149 H (136-145) mmol/L POC Potassium (3.3-5.0) mEq/L Potassium 3.6 (3.5-5.1) mmol/L POC Chloride (101-112) mEq/L Chloride 114 H (98-107) mmol/L Carbon Dioxide 29 (21-32) mmol/L POC Total CO2 (24-31) mEq/l Anion Gap 6.0 (3-11) POC Anion Gap (16-25) mmol/L POC BUN (7-18) mg/dl BUN 34 H (7-18) mg/dl Creatinine 1.59 H (0.6-1.4) mg/dl POC Creatinine (0.6-1.3) mg/dl Est Cr Clr Drug Dosing 48.4 ml/min Est GFR ( Amer) 54.3 Est GFR (Non-Af Amer) 46.8 BUN/Creatinine Ratio 21.4 H (10-20) Glucose 92 (70-99) mg/dl POC Glucose (other) (70-99) mg/dl Calcium 9.2 (8.5-10.1) mg/dl POC Ioniz Calcium Yung (1.12-1.32) mmol/l Magnesium 2.4 (1.8-2.4) mg/dl Total Bilirubin 1.4 H (0.2-1) mg/dl AST 28 (15-37) U/L ALT 55 (12-78) U/L Alkaline Phosphatase 66 (45-117) U/L Troponin I < 0.015 (0-0.045) ng/ml NT-Pro-B Natriuret Pep 45 (0-900) pg/ml Total Protein 7.3 (6.4-8.2) gm/dl Albumin 3.5 (3.4-5.0) gm/dl Globulin 3.8 (2.5-4.0) gm/dl Albumin/Globulin Ratio 0.9 (0.9-2) Lipase 356 (73-393) U/L TSH 2.740 (0.300-4.500) uIu/ml Urine Color Urine Appearance (Clear) Urine pH (4.5-7.5) Ur Specific [place] (1.000-1.030) Urine Protein (Negative) Urine Glucose (UA) (Negative) Urine Ketones (Negative) Urine Blood (Negative) Urine Nitrite (Negative) Urine Bilirubin (Negative) Urine Urobilinogen (Negative) Ur Leukocyte Esterase (Negative) Urine WBC (Auto) (0-5) /hpf Urine RBC (Auto) (0-4) /hpf U Hyaline Cast (Auto) (0-5) /lpf U Epithel Cells (Auto) (0-5) /lpf Urine Bacteria (Auto) (Negative) Ur Renal Epithelial Cell (0-5) /lpf Granular Casts (0) /lpf Urine Opiates Screen (Neg) Ur Methadone, Qual (Neg) Urine Barbiturates (Neg) Ur Phencyclidine (PCP) (Neg) U Amphetamin/Meth Scrn (Neg) MDMA (Ecstasy) Screen (Neg) U Benzodiazepines Scrn (Neg) Ur Cocaine Metabolite (Neg) U Marijuana (THC) Screen (Neg) Ethyl Alcohol mg/dL < 3.0 (0-3) mg/dl 07/08/18 07/08/18 07/08/18 Range/Units 20:31 20:31 20:58 WBC (4.8-10.8) K/uL RBC (4.7-6.1) M/uL Hgb (14.0-18.0) g/dL POC Hgb 13.3 L (14.0-18.0) g/dl Hct (42-52) % POC Hct 39 L (42-52) % MCV (80-100) fL MCH (25-34) pg MCHC (32-36) g/dL RDW Std Deviation (36.4-46.3) fL RDW Coeff of Richard (11.5-14.5) % Plt Count (130-400) K/uL MPV (7.4-10.4) fL Immature Gran % (Auto) % Neut % (Auto) % Lymph % (Auto) % [place] % (Auto) % Eos % (Auto) % Baso % (Auto) % Immature Gran # (Auto) (0.00-0.02) K/uL Neut # (Auto) (1.4-6.5) K/uL Lymph # (Auto) (1.2-3.4) K/uL [place] # (Auto) (0.11-0.59) K/uL Eos # (Auto) (0-0.5) K/uL Baso # (Auto) (0-0.2) K/uL POC Sodium 151 H (135-144) mEq/L Sodium (136-145) mmol/L POC Potassium 3.7 (3.3-5.0) mEq/L Potassium (3.5-5.1) mmol/L POC Chloride 114 H (101-112) mEq/L Chloride (98-107) mmol/L Carbon Dioxide (21-32) mmol/L POC Total CO2 24 (24-31) mEq/l Anion Gap (3-11) POC Anion Gap 18.0 (16-25) mmol/L POC BUN 34 H (7-18) mg/dl BUN (7-18) mg/dl Creatinine (0.6-1.4) mg/dl POC Creatinine 1.0 (0.6-1.3) mg/dl Est Cr Clr Drug Dosing ml/min Est GFR ( Amer) Est GFR (Non-Af Amer) BUN/Creatinine Ratio (10-20) Glucose (70-99) mg/dl POC Glucose (other) 121 H (70-99) mg/dl Calcium (8.5-10.1) mg/dl POC Ioniz Calcium [place]ung 1.06 L (1.12-1.32) mmol/l Magnesium (1.8-2.4) mg/dl Total Bilirubin (0.2-1) mg/dl AST (15-37) U/L ALT (12-78) U/L Alkaline Phosphatase (45-117) U/L Troponin I (0-0.045) ng/ml NT-Pro-B Natriuret Pep (0-900) pg/ml Total Protein (6.4-8.2) gm/dl Albumin (3.4-5.0) gm/dl Globulin (2.5-4.0) gm/dl Albumin/Globulin Ratio (0.9-2) Lipase (73-393) U/L TSH (0.300-4.500) uIu/ml Urine Color [place] Urine Appearance Turbid H (Clear) Urine pH 5.0 (4.5-7.5) Ur Specific [place] 1.022 (1.000-1.030) Urine Protein Trace H (Negative) Urine Glucose (UA) Negative (Negative) Urine Ketones 1+ H (Negative) Urine Blood Negative (Negative) Urine Nitrite Positive H (Negative) Urine Bilirubin Negative (Negative) Urine Urobilinogen Positive H (Negative) Ur Leukocyte Esterase Trace H (Negative) Urine WBC (Auto) 10-30 H (0-5) /hpf Urine RBC (Auto) 5-10 H (0-4) /hpf U Hyaline Cast (Auto) >30 H (0-5) /lpf U Epithel Cells (Auto) >30 H (0-5) /lpf Urine Bacteria (Auto) Negative (Negative) Ur Renal Epithelial Cell 0-5 (0-5) /lpf Granular Casts 5-10 H (0) /lpf Urine Opiates Screen Neg (Neg) Ur Methadone, Qual Neg (Neg) Urine Barbiturates Neg (Neg) Ur Phencyclidine (PCP) Neg (Neg) U Amphetamin/Meth Scrn Neg (Neg) MDMA (Ecstasy) Screen Neg (Neg) U Benzodiazepines Scrn Neg (Neg) Ur Cocaine Metabolite Neg (Neg) U Marijuana (THC) Screen Neg (Neg) Ethyl Alcohol mg/dL (0-3) mg/dl 07/09/18 07/09/18 07/09/18 Range/Units 08:44 08:44 12:54 WBC 7.65 (4.8-10.8) K/uL RBC 4.78 (4.7-6.1) M/uL Hgb 14.7 (14.0-18.0) g/dL POC Hgb (14.0-18.0) g/dl Hct 42.4 (42-52) % POC Hct (42-52) % MCV 88.7 (80-100) fL MCH 30.8 (25-34) pg MCHC 34.7 (32-36) g/dL RDW Std Deviation 42.6 (36.4-46.3) fL RDW Coeff of Richard 13.1 (11.5-14.5) % Plt Count 156 (130-400) K/uL MPV 12.1 H (7.4-10.4) fL Immature Gran % (Auto) 0.1 % Neut % (Auto) 67.2 % Lymph % (Auto) 21.4 % [place] % (Auto) 8.8 % Eos % (Auto) 1.7 % Baso % (Auto) 0.8 % Immature Gran # (Auto) 0.01 (0.00-0.02) K/uL Neut # (Auto) 5.14 (1.4-6.5) K/uL Lymph # (Auto) 1.64 (1.2-3.4) K/uL [place] # (Auto) 0.67 H (0.11-0.59) K/uL Eos # (Auto) 0.13 (0-0.5) K/uL Baso # (Auto) 0.06 (0-0.2) K/uL POC Sodium (135-144) mEq/L Sodium 147 H 148 H (136-145) mmol/L POC Potassium (3.3-5.0) mEq/L Potassium 3.5 3.5 (3.5-5.1) mmol/L POC Chloride (101-112) mEq/L Chloride 116 H 116 H (98-107) mmol/L Carbon Dioxide 24 26 (21-32) mmol/L POC Total CO2 (24-31) mEq/l Anion Gap 7.0 6.0 (3-11) POC Anion Gap (16-25) mmol/L POC BUN (7-18) mg/dl BUN 21 H 21 H (7-18) mg/dl Creatinine 0.85 D 0.85 (0.6-1.4) mg/dl POC Creatinine (0.6-1.3) mg/dl Est Cr Clr Drug Dosing 90.5 90.5 ml/min Est GFR ( Amer) 110.5 110.5 Est GFR (Non-Af Amer) 95.4 95.4 BUN/Creatinine Ratio 24.1 H 24.1 H (10-20) Glucose 115 H 104 H (70-99) mg/dl POC Glucose (other) (70-99) mg/dl Calcium 8.2 L 8.9 (8.5-10.1) mg/dl POC Ioniz Calcium [place]ung (1.12-1.32) mmol/l Magnesium (1.8-2.4) mg/dl Total Bilirubin 1.1 H (0.2-1) mg/dl AST 24 (15-37) U/L ALT 38 (12-78) U/L Alkaline Phosphatase 54 (45-117) U/L Troponin I (0-0.045) ng/ml NT-Pro-B Natriuret Pep (0-900) pg/ml Total Protein 5.9 L (6.4-8.2) gm/dl Albumin 2.6 L (3.4-5.0) gm/dl Globulin 3.3 (2.5-4.0) gm/dl Albumin/Globulin Ratio 0.8 L (0.9-2) Lipase (73-393) U/L TSH (0.300-4.500) uIu/ml Urine Color Urine Appearance (Clear) Urine pH (4.5-7.5) Ur Specific [place] (1.000-1.030) Urine Protein (Negative) Urine Glucose (UA) (Negative) Urine Ketones (Negative) Urine Blood (Negative) Urine Nitrite (Negative) Urine Bilirubin (Negative) Urine Urobilinogen (Negative) Ur Leukocyte Esterase (Negative) Urine WBC (Auto) (0-5) /hpf Urine RBC (Auto) (0-4) /hpf U Hyaline Cast (Auto) (0-5) /lpf U Epithel Cells (Auto) (0-5) /lpf Urine Bacteria (Auto) (Negative) Ur Renal Epithelial Cell (0-5) /lpf Granular Casts (0) /lpf Urine Opiates Screen (Neg) Ur Methadone, Qual (Neg) Urine Barbiturates (Neg) Ur Phencyclidine (PCP) (Neg) U Amphetamin/Meth Scrn (Neg) MDMA (Ecstasy) Screen (Neg) U Benzodiazepines Scrn (Neg) Ur Cocaine Metabolite (Neg) U Marijuana (THC) Screen (Neg) Ethyl Alcohol mg/dL (0-3) mg/dl Imaging Data Radiologist's Impression: Radiology results as stated below per my review and the radiologist's interpretation: CT cervical spine wo con CT DOSE: 1007.02 mGy.cm CLINICAL HISTORY: 57 years-old Male with syncope, ams, head injury. Acute neck injury status post fall COMPARISON: CT head of same day TECHNIQUE: Multiple axial CT images of the cervical spine were obtained without contrast. A dose lowering technique was utilized adhering to the principles of ALARA. FINDINGS: Mild disc space narrowing seen at several levels. Mild multilevel spondylitic spurring with mild to moderate facet arthrosis. No acute fracture or subluxation identified. Dilation of the central canal and neuroforamina is better assessed by MRI. Severe right-sided facet arthropathy at C3-C4. Trace right mastoid effusion. Left mastoid air cells are clear. Middle ear cavities are also clear. No prevertebral soft tissue swelling. Lung apices appear clear. IMPRESSION: No acute cervical spine fracture or subluxation. The above report was generated using voice recognition software. It may contain grammatical, syntax or spelling errors. Electronically signed by: Jake Grace M.D. 07/08/2018 6:49 PM XR abdomen 2V w PA chest HISTORY: 57 years-old Male nausea, syncope acute nausea with syncope COMPARISON: None available TECHNIQUE: PA view the chest with erect and supine views of the abdomen FINDINGS: Cardiomediastinal and hilar silhouettes are within normal limits. No pneumothorax, pleural effusion or overt pulmonary edema. Subsegmental left basilar opacities are noted. Degenerative changes of the shoulders and spine. Prior cholecystectomy. Bowel gas pattern appears nonobstructive. No definite urolith. Lumbar levoscoliosis. Degenerative changes of the hips, pelvis and spine. Remote fracture of the left femur with ORIF changes. Pelvic basin calci fications suggest focal bullous. IMPRESSION: 1. Subsegmental left basilar opacities suggest probable atelectasis. 2. Nonobstructive bowel gas pattern. The above report was generated using voice recognition software. It may contain grammatical, syntax or spelling errors. Electronically signed by: Jake Grace M.D. 07/08/2018 7:[address] head/brain wo con CLINICAL HISTORY: 57 years-old Male with syncope, chi, ams. Acute syncope with altered mental status and acute fall. TECHNIQUE: Multiple axial CT images of the head were obtained without contrast. A dose lowering technique was utilized adhering to the principles of ALARA. COMPARISON: CT cervical spine of same day. FINDINGS: No acute intracranial hemorrhage, midline shift, intracranial mass, hyd rocephalus, territorial ischemia or abnormal extra-axial collection. The calvarium is intact. The paranasal sinuses, mastoid air cells, and middle ear cavities are clear. IMPRESSION: No acute intracranial abnormality or calvarial fracture. The above report was generated using voice recognition software. It may contain grammatical, syntax or spelling errors. Electronically signed by: Jake Grace M.D. 07/08/2018 6:45 PM ABDOMEN AND PELVIS CT WITH IV CONTRAST CT DOSE: 496.73 mGy.cm HISTORY: Acute nausea and vomiting with recent cholecystectomy n/v, s/p karen TECHNIQUE: Multiaxial CT images of the abdomen and pelvis were performed following the use of intravenous contrast. A dose lowering technique was utilized adhering to the principles of ALARA. COMPARISON STUDY: Acute abdominal series radiographs of same day. FINDINGS: Bibasilar linear consolidative and patchy groundglass densities are noted suggestive of probable atelectasis. There is no pneumatosis or pneumoperitoneum identified. Imaged inferior cardiac chambers are upper limits of normal in size. Prior cholecystectomy. The postoperative fluid collections. No biliary ductal dilation. The liver is unremarkable. 5 mm hypodense lesion of the inferior right hepatic lobe suggests probable cyst. Spleen, pancreas and adrenal glands are unremarkable. Mild nonspecific bilateral perinephric stranding. The ureters are unremarkable. Mild wall thickening of the urinary bladder with partial distention. Prostate is unremarkable. Tiny fat filled left inguinal hernia. No aortic aneurysm or adenopathy. There is no small bowel obstruction. Air-fluid levels are noted within multiple nondilated loops of small bowel about the abdomen and pelvis. No significant bowel wall thickening. Appendix appears normal. No ascites or mesenteric inflammation. Soft tissues are within normal limits. Partially imaged hardware about the proximal left femur. Degenerative changes of the pelvis and spine. Mil d lumbar levoscoliosis. Bones appear intact. IMPRESSION: 1. No bowel obstruction or focal bowel wall thickening. Normal appendix. 2. Multiple scattered small bowel air-fluid levels are noted throughout the abdomen and pelvis which may be physiologic, however considering history of nausea and vomiting an infectious or inflammatory enteritis may also be considered. 3. Prior cholecystectomy. 4. Bibasilar opacities suggest atelectasis with pneumonia considered less likely. 5. Mild wall thickening of the urinary bladder. Correlate with urinalysis to exclude cystitis. 6. Additional findings as above. Electronically signed by: Jake Grace M.D. 07/08/2018 9:50 PM ECG Data Attestation: I personally reviewed and interpreted this ECG as follows: Indication: syncope Rate (beats per minute): 75 Rhythm: sinus rhythm Findings: + other (normal axis, normal QRS), + ST depression (v6 and v5), + T- wave inversion (lead 3 and aVF) and + prolonged QT Blood Pressure Blood Pressure Findings: Normal blood pressure Blood Pressure Disposition: did not require urgent referral MDM Narrative Patient here initially markedly ill-appearing and markedly dehydrated. I suspect his poor p.o. intake and severe dehydration contributed to the syncopal event today. No evidence of acute traumatic injury and have a low suspicion for additional occult trauma. Patient found to be hypernatremic, likely secondary to dehydration. Patient began to state he was feeling improved into the third liter of IV fluids. After his third liter patient finally was able to urinate, and on UA was found to have urinary tract infection. I do not feel patient has evolving sepsis or septic shock. Patient was hemodynamically stable. Patient's acute kidney injury likely secondary to dehydration also. Patient rechecked multiple times, and kept up-to-date on results. Discussed with him my concerns given his presentation today, severe dehydration, and other abnormalities noted, he verbalized understanding. Case discussed with hospitalist for additional evaluation and management. Impression & Plan Altered mental status, Syncope, UTI (urinary tract infection), Dehydration, Hyponatremia, MY (acute kidney injury) Discharge Plan Visit Data *Final* Discharge Date/Time: 07/09/18 01:21 Chief Complaint: Lethargic ED Provider: Pricila Romano Discharge Problem: Altered mental status, Syncope, UTI (urinary tract infection), Dehydration, Hyponatremia, MY (acute kidney injury) Patient Disposition: Admitted As Inpatient Condition: Fair Discharge Instructions Interventions: ED Discharge Assessment Last Done: 07/09/18 01:21 The scribe's documentation has been prepared under my direction and personally reviewed by me in its entirety. I confirm that the note above accurately reflects all work, treatment, procedures, and medical decision making performed by me.
[2018-07-10] MEDS: SODIUM CHLORIDE 0.45 % 1,000 ML IV SCH (03:39)
[2018-07-10 07:02] LABS: BUN Creatinine Ratio 23.7 (10-20); Calcium 8.6 mg/dl (8.5-10.1); Creatinine Clr Calc Pharmacy 120.8 ml/min; Est GFR (African American) 120.4; Est GFR (Non-African American) 103.9; Potassium 3.6 mmol/L (3.5-5.1)
[2018-07-10] MEDS: CITALOPRAM 20 MG TAB PO SCH (08:24)
[2018-07-10] MEDS: PANTOprazole 40 MG TAB PO SCH (08:24)
[2018-07-10] MEDS: lamoTRIgine 25 MG TAB PO SCH (08:25)
[2018-07-10] MEDS: LORazepam 0.5 MG TAB PO SCH (08:30)
[2018-07-10] MEDS ORDERED: OLANZAPINE ZYDIS 5 MG ORALLY DIS. TAB PO SCH (09:00)
--- NOTE | 2018-07-10 15:23 | Discharge Summary ---
Date of Service July 10, 2018 Admission HPI Per Admitting Provider Wilfred Martines is a 57-year-old male admitted medically on 07/08/18 s/p fall [facility]. There was reported concern as the patient had not been eating or drinking during his treatment there. Pt was admitted involuntarily and remains on an active 302 commitment. Pt is seen on our consult service to assist in psychiatric management during his medical admission - and specifically to evaluate for bipolar disorder and concern for SI. Pt had reportedly presented with AMS, was found to have a UTI and has been treated for dehydration. Psychiatric medications were continued during his medical admission. Pt was assessed by our psychiatric liaison. Pt was seen by this provider on our consult service. He is somewhat cooperative, and mildly irritable as he had reported desire to take a nap just prior to this provider entering the room. Pt states he is "hanging in there." He voices that he is feeling better and that he wants to go home. We discussed that after he is feeling better physically, he will be returning to the [facility] to finish his inpatient psychiatric treatment. The patient was asked about the presence of A/V hallucinations, which he denies stating "not that I know of." He denies overt suicidality, rather stating - "life is tough sometimes, but I bet a bunch of people feel that way." Pt denies homicidal ideation. He is tangential at times, jumping from our conversation to "do I have bruises all over me?" When asked if he felt that he did, he states "well they keep sticking me with needles." Pt, did not voice an concerns consistent with delusions, paranoia, or active psychosis which would make transfer back to the [facility] considered unsafe. Principal Diagnosis syncope hyernatremia uti poa, d/c on amoxil Discharge Exam Constitutional well developed and average body habitus Eyes no conjunctival abnormality and no scleral abnormality Neck normal visual inspection and trachea midline Respiratory normal respiratory effort; no respiratory distress Auscultation: lungs clear to auscultation bilaterally Cardiovascular RRR, no murmur, no edema Gastrointestinal (Abdomen) normal bowel sounds, soft, nontender, no hepatosplenomegaly Musculoskeletal no cyanosis or clubbing, extremities motor strength 5/5 Discharge Data Allergies Allergy/AdvReac Type Severity Reaction Status Date / Time quetiapine [From TensorcomoTruLeafl] AdvReac Irritable Unverified 07/08/18 17:43 venlafaxine [From Effexor] AdvReac Unknown Unverified 07/08/18 17:43 Consultations 07/09/18 01:54 Consult Psychiatry Routine Ordered Studies 07/08/18 17:28 CT cervical spine wo con Stat 07/08/18 17:29 CT head/brain wo con Stat 07/08/18 20:35 CT abd pelvis IV con only Stat Hospital Course (1) Syncope: 57yoM with hx of HTN and bipolar disorder presented from the [facility] for concern of lightheadedness and falling to the floor. Syncopal episode: likely in the setting of significant dehydration due to occasional diarrhea and decreased PO intake.possible polypharmacy -CT head and C-spine - negative -EKG 75 NSR QTc 511 -Trop and BNP wnl -electrolytes wnl except for hypernatremia/hyperchloremia -UA dirty and concentrated but possibly concerning for UTI -Abdominal CT concerning for possible enteritis -Utox negative and etoh < 3 -Received 2L IVF NS bolus and on 150cc NS now -Monitor on telemetry Lamictal level pending UTI poa -UCx negative stopped antibiotics MY -Received 2L NS bolus and on 150cc NS/hr resolved Hypernatremia resolved Diarrhea with occasional nausea since may: viral vs. bacterial enteritis -CT abdomen: multiple scattered small bowel air fluid levels concerning for infectious/inflammatory process vs. enteritis -C.diff and stool cultures ordered Bipolar Disorder -Pt was admitted at the [facility] prior to arrival -Continue home citalopram, lamotrigine, zyprexa and ativan will reduce doses of Zyprexa and Ativan which was scheduled due to his lethargy -Pt exhibiting passive suicidal thoughts but denies active SI/HI upon requesting /5 -Mental health evaluation will be compelted at the [facility] HTN -stop Lisinopril in the setting of elevated Cr GERD omeprazole (2) UTI (urinary tract infection): maybe present on admission, grown gram positive, no final culture results, recieved two doses of rocephin and farrah recommend amoxil to be changed once cultures are back (3) Dehydration: (4) HTN (hypertension): (5) Bipolar disorder: Total Time Total Time Spent Total Time Spent (In Minutes): greater than 30 minutes were required to prepare discharge Discharge Plan Discharge Items Patient Disposition: Transfer Behavioral Health Fac Reason For Visit: HYPERNATREMIA Discharge Diagnosis: syncope hypernatremia possible uti Condition: Fair Discharge Goals: Decrease discomfort Activity: Resume your previous activity Non-emergency contact: Primary Care Provider Call non-emergency contact if: you have any medication questions Follow-up/Referrals: PCP,NO [Primary Care Provider] - Diet: Regular Addtl Provider Instructions: please check electrolytes one a week some med doses were reduced due to lethargy and fall risk associated with the lethargy Prescriptions: New lorazepam 0.5 mg Tablet 0.5 mg PO BID Qty: 1 RF: 0 olanzapine 5 mg Tablet,Disintegrating 5 mg PO DAILY Qty: 1 RF: 0 amoxicillin 500 mg capsule 500 mg PO BID 5 Days Qty: 10 RF: 0 Continued citalopram 10 mg Tablet 30 mg PO DAILY RF: 0 lamotrigine 25 mg Tablet 50 mg PO BID RF: 0 omeprazole 20 mg Capsule,Delayed Release(Dr/Ec) 20 mg PO DAILY RF: 0 Discontinued lisinopril 10 mg Tablet 10 mg PO DAILY RF: 0 olanzapine [Zyprexa Zydis] 10 mg Tablet,Disintegrating 10 mg PO DAILY RF: 0 lorazepam [Ativan] 1 mg Tablet 1 mg PO TID RF: 0 Stand-Alone Forms: [facility], [facility] Discharge Orders: Discharge Order (Routine); Ordered 07/10/18 Ordered By: Avery Kwon Admission Data Admit Date/Time: 07/09/18 01:54 Attending Provider: Avery Kwon Admit Provider: Ricky Romano Primary Care Provider: PCP,NO Other Providers: Delia Amos Rick D Service: Telemetry Other Interventions: Discharge Summary Assessment (RN) Last Done: 07/10/18 11:12 DC Date/Time DO NOT enter until pt leaves facility: 07/10/18 15:18
== END 2018-07-10 15:18 | DRG 683 ==
LOC: ED 16:49 → 2S 16:49 → SUATTDRO 07-09 01:54